=== PATIENT | female | born 1975 ===

== ENCOUNTER 2017-07-28 12:52 | Emergency (ER) | payer OTHER ==
[~2017-07-28] VITALS: Ht 157.5 cm; Wt 64.6 kg
[2017-07-28 12:59] VITALS: TEMP 36.7; Ht 157.5 cm; Wt 64.6 kg
[2017-07-28] MEDS ORDERED: IBUPROFEN 600 MG TAB PO STA (13:13)
[2017-07-28 13:18] VITALS: O2SAT 100
--- NOTE | 2017-07-28 13:24 | EMERGENCY ROOM VISIT NOTE ---
ED Visit Note First contact with patient: 13:07 CHIEF COMPLAINT: Rib injury HISTORY OF PRESENT ILLNESS: This 41-year-old female patient presents to the emergency department by private vehicle with her family complaining of pain in the right ribs after a fall 2 days ago. Patient states that she slipped in the bathtub Saturday afternoon, falling onto her right side. She denies hitting her head, denies loss of consciousness. She states there is a small scratch on her ankle, and denies any other injuries. She has pain with certain movements of her right arm and twisting of her torso. There is no increased pain with deep breathing or coughing. Attempting to sit up from a lying position is painful. Denies shortness of breath or coughing up blood. The patient rates the pain as sharp and 6/10. The patient has taken Tylenol with some relief of the pain. No known previous fractures to the ribs, but she did have a previous fall and injury to her right side several years ago. The patient denies any other injury. The patient denies any abdominal pain, nausea, or vomiting. She denies any dizziness or syncope. She denies any headache, neck pain, back pain, pain in the extremities, numbness or weakness in the extremities. REVIEW OF SYSTEMS: A complete 10 point review of systems was reviewed with the patient with pertinent positives and negatives as per history of present illness. All else were negative. ALLERGIES: No known allergies MEDICATIONS: No medications. PMH: No significant past medical or surgical history. SOCIAL HISTORY: Lives at home with family. She denies tobacco use. PHYSICAL EXAM: VITALS: Vitals are noted on the nurse's note and reviewed by myself. Vital signs stable. Patient oxygen saturation is noted to be 100% on room air tracking on the monitor. GENERAL: Pleasant and cooperative, in no acute distress, non-diaphoretic, well- developed well-nourished. LUNGS: Clear to auscultation and breath sounds equal, no wheezes, rales, or rhonchi. Equal expansion bilaterally. HEART: Heart sounds are regular without murmurs, ectopy, gallop, or rub. Normal peripheral perfusion. No edema. CHEST Wall: The right anterior and lateral chest wall is tender to palpation over the sixth through eighth ribs but there is no palpable fracture or crepitus and no ecchymosis or abrasion. There is no tachypnea or dyspnea. ABDOMEN: Positive bowel sounds x 4. Normal tympanic percussion. Soft, nontender, without masses or organomegaly. No right upper quadrant tenderness. No CVA tenderness. No guarding or rebound tenderness. MUSCULOSKELETAL: Moves all extremities with normal strength. Full range of motion of all joints without pain. INTEGUMENTARY: No rash or other significant dermatologic conditions noted. NEUROLOGIC: Alert and oriented X 4 with normal affect. Cranial nerves II-XII grossly intact. No focal neurologic deficits noted. Normal strength and sensation all 4 extremities. Normal speech. Normal gait observed. ED COURSE AND MEDICAL DECISION MAKING: CC: Patient presenting with complaint of right chest wall pain after fall DIFFERENTIAL DIAGNOSIS: Includes, but not limited to costochondritis, chest wall contusion, rib fracture, pulmonary contusion, pneumothorax, hemothorax, among others. INTERPRETATION OF LABS: No leukocytosis, no anemia, no significant electrolyte abnormalities, normal renal function, normal liver enzymes. Normal coagulation factors. IMAGING: R RIBS UNILATERAL WITH PA CHEST CLINICAL HISTORY: fall onto right side, chest wall pain, eval rib fx, PTX/LACI trauma. Pain. COMPARISON STUDY: None FINDINGS: Old healed fractures of the right 11th and 12th ribs. Nondisplaced fractures anterior right ninth and 10th ribs. All remaining ribs are unremarkable. The lungs are clear. No evidence pneumothorax. IMPRESSION: 1. Fractures anterior right ninth and 10th ribs. 2. Old healed fractures right 11th and 12th ribs. 3. No evidence pneumothorax. MEDICATION RECONCILIATION: I attest that I have personally reviewed the patient 's current medication list. INITIAL VITAL SIGNS REVIEW: I reviewed the patient's initial vital signs and interpret them as follows: T: Afebrile; BP: Hypertensive; HR: Within normal limits; RR: Within normal limits; Pulse Ox: Within normal limits on room air. Blood pressure screening: The patient was found to have an elevated blood pressure and was referred to their primary doctor for recheck and further treatment. SUMMARY: Patient was evaluated at bedside, history and physical exam performed. Patient is alert and oriented, no acute distress but does appear to be in some pain, resting calmly in the stretcher. Patient has tenderness to palpation over the right anterior and lateral ribs, no crepitus, no ecchymosis or swelling. No right upper quadrant tenderness to light and deep palpation and no CVA tenderness. Patient is stable, and is requesting only an x-ray at this time, and prefers not to have blood work done. Orders were placed at bedside for Motrin for pain and x-ray to evaluate for rib fracture/injury. Patient discussed with Dr. Hutton, who agrees with my assessment and plan. Chest x-ray reviewed noting acute fractures of the 9th and 10th rib. I did speak with the patient and her family regarding the rib fractures and recommended that we perform CT imaging to rule out any injury to the liver, given the location of her rib fractures. The patient requested to speak with her family privately regarding additional testing. Initially the patient stated that she did not want any more testing and wished to be discharged. The patient then asked to speak with me again and I explained again the reasoning for ordering additional CT imaging. The patient now agrees to have CT imaging performed. Additional orders were placed for IV placement, basic labs and i-STAT, IV fluid bolus, and CT of the chest, abdomen and pelvis with IV contrast to evaluate for additional trauma. CT imaging was reviewed, no additional traumatic injuries noted besides the 2 rib fractures. Patient reassessed multiple times throughout ED stay, she remained stable, and states that her pain is improved. Patient was updated on all results and plan for discharge, she was encouraged to follow closely with her primary care provider. She was provided with Rx for pain medication. She was also provided with an incentive spirometer and educated regarding its use. Patient was also given strict return precautions should her symptoms worsen, she verbalized understanding. Patient was discharged home in stable condition and ambulatory. Current/Historical Medications Scheduled PRN Oxycodone Ir (Roxicodone Ir), 1 TAB PO Q6H PRN for Severe Pain Allergies Coded Allergies: No Known Allergies (Unverified , 07/28/17) Vital Signs Date Time Temp Pulse Resp B/P (MAP) Pulse Ox O2 Delivery O2 Flow Rate FiO2 07/28/17 17:45 96 20 157/94 100 Room Air 07/28/17 15:51 86 20 140/99 100 Room Air 07/28/17 14:59 98 18 153/100 100 Room Air 07/28/17 13:18 100 Room Air 07/28/17 13:08 100 Room Air 07/28/17 12:59 36.7 98 18 133/87 92 Room Air Laboratory Results 07/28/17 15:25 Red Blood Count 5.95, Mean Corpuscular Volume 72.6, Mean Corpuscular Hemoglobin 22.5, Mean Corpuscular Hemoglobin Concent 31.0, Mean Platelet Volume 9.2, Neutrophils (%) (Auto) 70.2, Lymphocytes (%) (Auto) 23.6, Monocytes (%) (Auto) 5.4, Eosinophils (%) (Auto) 0.5, Basophils (%) (Auto) 0.0, Neutrophils # (Auto) 7.56, Lymphocytes # (Auto) 2.54, Monocytes # (Auto) 0.58, Eosinophils # (Auto) 0.05, Basophils # (Auto) 0.00 07/28/17 15:25 Test 07/28/17 15:25 07/28/17 15:32 White Blood Count 10.76 K/uL (4.8-10.8) Red Blood Count 5.95 M/uL (4.2-5.4) Hemoglobin 13.4 g/dL (12.0-16.0) Hematocrit 43.2 % (37-47) Mean Corpuscular Volume 72.6 fL (80-100) Mean Corpuscular Hemoglobin 22.5 pg (25-34) Mean Corpuscular Hemoglobin Concent 31.0 g/dl (32-36) Platelet Count 359 K/uL (130-400) Mean Platelet Volume 9.2 fL (7.4-10.4) Neutrophils (%) (Auto) 70.2 % Lymphocytes (%) (Auto) 23.6 % Monocytes (%) (Auto) 5.4 % Eosinophils (%) (Auto) 0.5 % Basophils (%) (Auto) 0.0 % Neutrophils # (Auto) 7.56 K/uL (1.4-6.5) Lymphocytes # (Auto) 2.54 K/uL (1.2-3.4) Monocytes # (Auto) 0.58 K/uL (0.11-0.59) Eosinophils # (Auto) 0.05 K/uL (0-0.5) Basophils # (Auto) 0.00 K/uL (0-0.2) RDW Standard Deviation 65.1 fL (36.4-46.3) RDW Coefficient of Variation 25.5 % (11.5-14.5) Immature Granulocyte % (Auto) 0.3 % Immature Granulocyte # (Auto) 0.03 K/uL (0.00-0.02) Anisocytosis PRESENT Ovalocytes 1+ Schistocytes 1+ Prothrombin Time 10.3 SECONDS (9.0-12.0) Prothromb Time International Ratio 1.0 (0.9-1.1) Activated Partial Thromboplast Time 25.9 SECONDS (21.0-31.0) Partial Thromboplastin Ratio 1.0 Est Creatinine Clear Calc Drug Dose 88.0 ml/min Estimated GFR () 115.6 Estimated GFR (Non- 99.7 BUN/Creatinine Ratio 7.5 (10-20) Calcium Level 9.3 mg/dl (8.5-10.1) Total Bilirubin 0.7 mg/dl (0.2-1) Aspartate Amino Transf (AST/SGOT) 7 U/L (15-37) Alanine Aminotransferase (ALT/SGPT) 19 U/L (12-78) Alkaline Phosphatase 60 U/L (45-117) Total Protein 9.2 gm/dl (6.4-8.2) Albumin 4.4 gm/dl (3.4-5.0) Globulin 4.8 gm/dl (2.5-4.0) Albumin/Globulin Ratio 0.9 (0.9-2) Bedside Hemoglobin 16.0 g/dl (12.0-16.0) Bedside Hematocrit 47 % (37-47) Bedside Sodium 140 mEq/L (135-144) Bedside Potassium 3.5 mEq/L (3.3-5.0) Bedside Chloride 100 mEq/L (101-112) Bedside Total CO2 26 mEq/l (24-31) Anion Gap 18.0 mmol/L (16-25) Bedside Blood Urea Nitrogen 4 mg/dl (7-18) Bedside Creatinine 0.6 mg/dl (0.6-1.3) Bedside Glucose (other) 139 mg/dl (70-99) Bedside Ionized Calcium (Tavon) 1.18 mmol/l (1.12-1.32) Medications Administered Medications (Trade) Dose Ordered Sig/Jesus Route Start Time Stop Time Status Last Admin Dose Admin Ibuprofen (Motrin Tab) 600 mg NOW STAT PO 07/28/17 13:13 07/28/17 13:16 DC 07/28/17 13:21 600 MG Sodium Chloride 1,000 ml @ 999 mls/hr Q1H1M STAT IV 07/28/17 15:05 07/28/17 16:05 DC 07/28/17 15:49 999 MLS/HR Oxycodone HCl (Roxicodone Immediate Rel 5MG Home Pack) 1 homepack UD ONCE PO 07/28/17 16:45 07/28/17 16:46 DC 07/28/17 16:55 1 HOMEPACK Departure Information Impression Primary Impression: Fall Additional Impression: Ribs, multiple fractures Dispostion Home / Self-Care Condition GOOD Prescriptions Oxycodone Ir (Roxicodone Ir) 5 Mg Tab 1 TAB PO Q6H Y for Severe Pain, #20 TAB Prov: Martina Zuñiga CRNP 07/28/17 Patient Instructions ED Fx Rib, My [facility] Additional Instructions You have been evaluated and treated in the Emergency Department for your Right Rib Fractures. You have been prescribed oxycodone to be used as needed for SEVERE pain control. This is a narcotic medication. You cannot drive, operate machinery, or consume alcohol while on this medicine. This medicine should only be used for pain that cannot be controlled with [id number]-ikzvste pain medicines. For pain control, you can use the following [id number]-hqq-gaqhybi medicines (if >12 yo): - Extra strength (500mg/tab) Tylenol (acetaminophen) 1-2 tabs every 6-8 hours as needed. Do not exceed 6 tablets in a 24 hour period. Avoid taking more than 3 grams (3000 mg) of Tylenol per day. This includes any other sources of acetaminophen you may take on a regular basis. - Regular strength (200 mg/tab) Advil (ibuprofen) 3 tabs every 6-8 hours as needed. Do not exceed a dose of 2400 mg per day. If this is an acute injury, ice can be applied to the area of pain for the first 3 days to help decrease pain and inflammation. After the first 3 days, a heating pad can be used over the area for continued soothing relief. You should schedule a follow-up appointment in 2-3 days with your Primary Care Provider or go to an urgent care center for further evaluation and treatment of your rib pain. Hugging a small pillow while coughing or sneezing can help to reduce your pain. Be sure to continue taking occasional deep breaths and use the incentive spirometer 10 times every hour while you are awake to help expand your lungs to reduce the risk of developing pneumonia. Return to the Emergency Department if your current symptoms worsen despite treatment course outlined above, or if you develop any of the following symptoms : severe worsening pain that does not respond to pain medication, loss of control of your bowel or bladder, numbness or tingling in your groin, shortness of breath, coughing up blood, severe dizziness or passing out, development of a fever, or any other concerns. Problem Qualifiers Primary Impression: Fall Encounter type: initial encounter Qualified Codes: W19.XXXA - Unspecified fall, initial encounter Additional Impression: Ribs, multiple fractures Encounter type: initial encounter Fracture type: closed Laterality: right Qualified Codes: S22.41XA - Multiple fractures of ribs, right side, initial encounter for closed fracture
--- NOTE | 2017-07-28 14:04 | DIAGNOSTIC IMAGING REPORT ---
R RIBS UNILATERAL WITH PA CHEST CLINICAL HISTORY: fall onto right side, chest wall pain, eval rib fx, PTX/LACI trauma. Pain. COMPARISON STUDY: None FINDINGS: Old healed fractures of the right 11th and 12th ribs. Nondisplaced fractures anterior right ninth and 10th ribs. All remaining ribs are unremarkable. The lungs are clear. No evidence pneumothorax. IMPRESSION: 1. Fractures anterior right ninth and 10th ribs. 2. Old healed fractures right 11th and 12th ribs. 3. No evidence pneumothorax. The above report was generated using voice recognition software. It may contain grammatical, syntax or spelling errors. Electronically signed by: Farhan Torrez M.D. 07/28/2017 2:03 PM Dictated Date/Time: 07/28/2017 2:01 PM
[2017-07-28] MEDS ORDERED: SODIUM CHLORIDE 0.9% 1000ML 1,000 ML IV STA (15:05)
[2017-07-28] MEDS ORDERED: OPTIRAY 320 IV PRN (15:15)
[2017-07-28 15:36] LABS: EOS % 0.5 %; EOS ABS # 0.05 K/uL (0-0.5); HEMATOCRIT 43.2 % (37-47); HEMOGLOBIN 13.4 g/dL (12.0-16.0); IG# 0.03 K/uL (0.00-0.02); LYMPH % 23.6 %; LYMPH ABS # 2.54 K/uL (1.2-3.4); MEAN CELL VOLUME 72.6 fL (80-100); MEAN CORPUSCULAR HEMOGLOBIN 22.5 pg (25-34); MEAN PLATELET VOLUME 9.2 fL (7.4-10.4); MONO % 5.4 %; MONO ABS # 0.58 K/uL (0.11-0.59); NEUT % 70.2 %; NEUT ABS # 7.56 K/uL (1.4-6.5); PLATELET COUNT 359 K/uL (130-400); RED CELL DISTRIBUTION WIDTH CV 25.5 % (11.5-14.5); RED CELL DISTRIBUTION WIDTH SD 65.1 fL (36.4-46.3); WHITE BLOOD COUNT 10.76 K/uL (4.8-10.8)
[2017-07-28 15:44] LABS: ISTAT CREATININE 0.6 mg/dl (0.6-1.3); ISTAT IONIZED CALCIUM 1.18 mmol/l (1.12-1.32); ISTAT POTASSIUM 3.5 mEq/L (3.3-5.0)
[2017-07-28 15:50] LABS: PTT PATIENT 25.9 SECONDS (21.0-31.0)
[2017-07-28 15:54] LABS: ALBUMIN 4.4 gm/dl (3.4-5.0); CALCIUM 9.3 mg/dl (8.5-10.1); CREATININE 0.75 mg/dl (0.60-1.20); POTASSIUM 3.4 mmol/L (3.5-5.1)
[2017-07-28 15:57] LABS: TOTAL PROTEIN 9.2 gm/dl (6.4-8.2)
--- NOTE | 2017-07-28 16:14 | DIAGNOSTIC IMAGING REPORT ---
CT (CHEST) THORAX WITH CT DOSE: 496.59 mGy.cm HISTORY: Trauma. Pain. fall, right rib fxs, eval trauma TECHNIQUE: Multiaxial CT images of the chest were performed following the intravenous administration of contrast. A dose lowering technique was utilized adhering to the principles of ALARA. COMPARISON: None. FINDINGS: The lungs are clear. The mediastinal vascular structures are within normal limits. No mediastinal or hilar lymphadenopathy. No pleural effusion or pneumothorax. Limited views of the upper abdomen demonstrate a normal liver and spleen. Nondisplaced fractures anterior right ninth and 10th ribs. IMPRESSION: Nondisplaced fractures anterior right ninth and 10th ribs. Chest is otherwise negative. The above report was generated using voice recognition software. It may contain grammatical, syntax or spelling errors. Electronically signed by: Farhan Torrez M.D. 07/28/2017 4:12 PM Dictated Date/Time: 07/28/2017 4:10 PM
--- NOTE | 2017-07-28 16:17 | DIAGNOSTIC IMAGING REPORT ---
ABD/PELVIS IV CONTRAST ONLY CT DOSE: HISTORY: Trauma. Pain. fall, right rib fxs, eval trauma TECHNIQUE: Multiaxial CT images of the abdomen and pelvis were performed following the use of intravenous contrast. A dose lowering technique was utilized adhering to the principles of ALARA. COMPARISON STUDY: None. FINDINGS: Lung bases are clear. Nondisplaced fractures right ninth and 10th ribs. The liver enhances homogeneously. There are no perihepatic fluid collections. Spleen enhances uniformly. Kidneys are negative for hydronephrosis. The bowel pattern is considered nonobstructive. There is no free fluid within the pelvis or abdomen. Bladder is somewhat contracted. There is slight thickening of the bladder wall. IMPRESSION: 1. Nondisplaced fractures right ninth and 10th ribs. 2. Evaluation of the abdomen and pelvis is otherwise negative. The above report was generated using voice recognition software. It may contain grammatical, syntax or spelling errors. Electronically signed by: Farhan Torrez M.D. 07/28/2017 4:16 PM Dictated Date/Time: 07/28/2017 4:13 PM
[2017-07-28] MEDS ORDERED: OXYC1TAB3 PO (16:40)
[2017-07-28] MEDS ORDERED: OXYCODONE IR HOME PACK PO ONE (16:45)
[2017-07-28 17:45] VITALS: BP 157/94; PULSE 96; O2SAT 100
== END 2017-07-28 17:56 | disposition home or self-care (01) ==
LOC: C.EDB 12:56 → EDBD 12:56 → C.EDB 17:56
DX: S22.41XA Multiple fractures of ribs, right side, initial encounter for closed fracture (principal); W16.212A Fall in (into) filled bathtub causing other injury, initial encounter